=== PATIENT | male | born 1980 | race Caucasian/White ===

== ENCOUNTER 2017-07-29 00:39 | Emergency (ER) | payer MEDICAID ==
[~2017-07-29] VITALS: Ht 182.9 cm; Wt 80.1 kg
[2017-07-29 00:41] VITALS: BP 129/81
[2017-07-29] MEDS ORDERED: ESCI20TA PO (00:54)
[2017-07-29] MEDS ORDERED: FAMO-79 PO (00:54)
[2017-07-29] MEDS ORDERED: OMEP-110 PO (00:54)
[2017-07-29] MEDS ORDERED: LIDOCAINE 1%, 10ML INFIL ONE (01:30)
[2017-07-29] MEDS ORDERED: LIDOCAINE-MPF 1%, 2ML ONE ×2 (01:32→01:37)
== END 2017-07-29 02:20 | disposition home or self-care (01) ==
LOC: ED 02:14
DX: S63.282A Dislocation of proximal interphalangeal joint of right middle finger, initial encounter (principal); S60.415A Abrasion of left ring finger, initial encounter; K21.9 Gastro-esophageal reflux disease without esophagitis; W13.2XXA Fall from, out of or through roof, initial encounter; Y93.89 Activity, other specified; Y99.8 Other external cause status; Y92.009 Unspecified place in unspecified non-institutional (private) residence as the place of occurrence of the external cause
CPT/HCPCS: 26770; 99284